=== PATIENT | male | born 1980 | race Caucasian/White ===

== ENCOUNTER 2021-01-18 20:51 | Emergency (ER) | payer OTHER ==
[~2021-01-18] VITALS: Ht 177.8 cm; Wt 100.0 kg
[2021-01-18] MEDS ORDERED: LIDOCAINE 1% INJ 20 ML 20 ML VIAL INJ STA (21:10)
--- NOTE | 2021-01-18 21:15 | ED Upper Extremity ---
General Stated Complaint: R HAND LAC History of Present Illness Date Seen by Provider: Jan 18, 2021 Time Seen by Provider: 21:01 Initial Comments 40-year-old male reports a roller injury to his right hand in the first webspace that occurred at 1630 today. The injury occurred while at work, he washed it thoroughly, Steri-Strips placed and had a compressive dressing in place. He is right-hand dominant, he denies any previous injuries to his right hand. His last tetanus was approximately 5 years ago. Onset: this afternoon Severity: mild Pain/Injury Location: right thumb Method of Injury: incised (SHANITA PEÑA) Allergies and Home Medications Allergies Coded Allergies: No Known Drug Allergies (Unverified , 01/18/21) Patient Home Medication List Home Medication List Reviewed: Yes (SHANITA PEÑA) Review of Systems Constitutional: no symptoms reported, see HPI Skin: see HPI, other (Laceration first webspace right hand) (SHANITA PEÑA) All Other Systems Reviewed Negative Unless Noted: Yes (SHANITA PEÑA) Past Blmuxlg-Diwtrr-Wkzscz Hx Family Medical History Reviewed Nursing Family Hx (SHANITA PEÑA) Physical Exam Vital Signs Vital Signs - First Documented 01/18/21 20:56 Temp 36.8 Pulse 94 Resp 16 B/P (MAP) 147/100 (116) Pulse Ox 97 O2 Delivery Room Air (MARY ALICE,VAL K DO) Vital Signs Capillary Refill : (SHANITA PEÑA) Height, Weight, BMI Height: '" Weight: lbs. oz. kg; BMI Method: General Appearance: WD/WN, no apparent distress Cardiovascular: normal peripheral pulses, regular rate, rhythm Respiratory: chest non-tender, lungs clear, normal breath sounds Hand: Right, laceration (Y shaped lac to first web space, right hand, no active bleeding. ) Neurologic/Tendon: normal sensation, normal motor functions, normal tendon functions Neurologic/Psychiatric: no motor/sensory deficits, alert, normal mood/affect, oriented x 3 Skin: normal color, warm/dry (SHANITA PEÑA) Procedures/Interventions Wound Location: Upper Extremities (right hand) Wound Length (cm): 3 Wound's Depth, Shape: superficial Wound Explored: clean Irrigated w/ Saline (ccs): 500 Betadine Prep?: Yes Anesthesia: 1% Lidocaine Volume Anesthetic (ccs): 8 Suture Size: 4-0 Number of Sutures: 5 Sterile Dressing Applied?: Yes Progress Wound well approximated, bulky sterile dressing applied patient tolerated well (SHANITA PEÑA) Progress/Results/Core Measures Results/Orders Vital Signs/I&O 01/18/21 01/18/21 20:56 22:00 Temp 36.8 Pulse 94 86 Resp 16 20 B/P (MAP) 147/100 (116) 138/98 Pulse Ox 97 98 O2 Delivery Room Air Room Air (VAL WHEAT DO) Departure Impression Primary Impression: Laceration of right hand Qualified Codes: S61.411A - Laceration without foreign body of right hand, initial encounter Disposition: HOME, SELF-CARE Condition: Improved Departure-Patient Inst. Decision time for Depature: 21:45 (SHANITA PEÑA) Referrals: LOUISA COCHRAN MD (PCP/Family) Primary Care Physician Patient Instructions: Laceration Repair With Stitches (DC) Add. Discharge Instructions: Keep wound clean and dry for the next 24 hours then you may shower as normal. Do not submerge the wound in standing water in a sink, bathtub, pool or hot tub. Clean the wound with peroxide or alcohol after bathing. Keep the wound covered with a Band-Aid or dressing when away from home. Watch for signs of infection, redness, swelling, fever, discolored or foul- smelling drainage. Follow-up in the emergency department or with your primary care provider in 7 to 10 days for suture removal. You may alternate between Tylenol 650 mg and ibuprofen 600 mg every 4 hours for pain. Return to the emergency department for new, urgent healthcare needs. ATTENDING PHYSICIAN NOTE: I WAS PHYSICALLY PRESENT ER PHYSICIAN WHEN THIS PATIENT WAS IN ER, BUT I WAS NOT INVOLVED IN DECISION MAKING OR ANY CARE OF THIS PATIENT. (VAL WHEAT DO) SHANITA PEÑA Jan 18, 2021 21:15 VAL WHEAT DO Jan 19, 2021 00:04
[2021-01-18 22:00] VITALS: BP 138/98
== END 2021-01-18 22:01 | disposition home or self-care (01) ==
LOC: ER 20:55
DX: S61.411A Laceration without foreign body of right hand, initial encounter (principal); X58.XXXA Exposure to other specified factors, initial encounter; Y92.59 Other trade areas as the place of occurrence of the external cause; Y99.0 Civilian activity done for income or pay
CPT/HCPCS: 12002